=== PATIENT | female | born 1955 | race Caucasian/White ===

== ENCOUNTER → 2023-10-13 06:39 | Outpatient (REF) | payer OTHER, SELFPAY | LOC: WDC 06:39 | PROVIDERS: ATTENDING PHYSICIAN Internal Medicine | DX: Z12.31 Encounter for screening mammogram for malignant neoplasm of breast (principal) | CPT/HCPCS: 77063; 77067 ==

== ENCOUNTER → 2024-10-18 06:38 | Outpatient (REF) | payer OTHER, SELFPAY | LOC: WDC 06:38 | PROVIDERS: ATTENDING PHYSICIAN Internal Medicine | DX: Z12.31 Encounter for screening mammogram for malignant neoplasm of breast (principal) | CPT/HCPCS: 77063; 77067 ==